=== PATIENT | female | born 1960 ===

== ENCOUNTER 2025-09-01 09:34 | Outpatient (AMB) | payer OTHER, SELFPAY ==
--- OUTSIDE RECORDS SUMMARY | 2024-07-29 06:45 | XMS_ITS ---
Author Organization [facility] Address [address] [place] [address] Care Team Providers Care Supervisor Picking Crew Name Role Phone [facility] Primary C are Provider Unavailable ELIZABETH BARAHONA Unavailable [phone] LYNETTE ARELLANO Unavailable [phone] REASON FOR VISIT pt is here for sema 0.25mg...pt signed consent and left the office in stable condition Medications Medication SIG (Take, Route, Frequency, Duration) Notes Start Date End Date Status Lipitor 40 MG Tablet 1 tablet Orally Once a day Active Omeprazole Magnesium 20 MG Tablet Delayed Release 1 tablet 30 minutes before morning meal Orally Once a day Active Eliquis 2.5 MG Tablet as directed Orally daily Active Diovan 160 MG Tablet 1 tablet Orally Once a day Active Wegovy 0.25 MG/0.5ML Solution Auto-injector 0.5 mL Subcutaneous once a week; Duration: 30 days 07/22/2024 Active Encounters Encounter Location Date Provider Diagnosis [facility] [address] [place] [address] 07/29/2024 LYNETTE ARELLANO Plan Of Treatment No Information Medications Administered Medication Instructions Date of Administration Dosage Notes Semaglutide 07/29/2024 0.25 mg Progress Notes * La YENsDOB: [birth year] (65 yo F)Acc No.[id number]:07/29/2024 Patient: Shani Webblis Provider: Dionicio Arellano MD :1960 A ge:63 Y S ex:Female Date:07/29/2024 [address] [facility] Pcp:[facility] Yasmin Subjective: * Chief Complaints: * P t is here for sema 0.25mg...pt signed consent and left the office in stable condition * Medications: T akingEliquis 2.5 MG Tablet as directed Orally daily Lipitor 40 MG Tablet 1 tablet Orally Once a day Omeprazole Magnesium 20 MG Tablet Delayed Release 1 tablet 30 minutes before morning meal Orally Once a day Diovan 160 MG Tablet 1 tablet Orally Once a day Wegovy 0.25 MG/0.5ML Solution Auto-injector 0.5 mL Subcutaneous once a week Taking Eliquis 2.5 MG Tablet as directed Orally daily Taking Lipitor 40 MG Tablet 1 tablet Orally Once a day Taking Omeprazole Magnesium 20 MG Tablet Delayed Release 1 tablet 30 minutes before morning meal Orally Once a day Taking Diovan 160 MG Tablet 1 tablet Orally Once a day Taking Wegovy 0.25 MG/0.5ML Solution Auto-injector 0.5 mL Subcutaneous once a week Plan: * Therapeutic Injections: Semaglutide : 0.25 mg (Route: Subcutaneous) given by Gayle Guy on right arm subcutaneous * Electronic signature of NILA ARELLANO MD on 09/01/2025 at 11:03 AM EST Sign off status: Pending * Provider: Dionicio Arellano MD Date: 09/28/2023 Generated for Donna lindsay/Patrick/Carmen on: 11/02/2024 11:03 AM EST
--- OUTSIDE RECORDS SUMMARY | 2024-08-05 05:15 | XMS_ITS ---
Author Organization [facility] Address [address] [place] [address] Care Team Providers Care Streetcar Conductor Name Role Phone [facility] Primary C are Provider Unavailable ELIZABETH BARAHONA Unavailable [phone] LYNETTE ARELLANO Unavailable [phone] REASON FOR VISIT pt is here for sema 0.25mg...pt signed consent and left the office in stable condition Medications Medication SIG (Take, Route, Frequency, Duration) Notes Start Date End Date Status Eliquis 2.5 MG Tablet as directed Orally daily Active Omeprazole Magnesium 20 MG Tablet Delayed Release 1 tablet 30 minutes before morning meal Orally Once a day Active Lipitor 40 MG Tablet 1 tablet Orally Once a day Active Wegovy 0.25 MG/0.5ML Solution Auto-injector 0.5 mL Subcutaneous once a week; Duration: 30 days 07/22/2024 Active Diovan 160 MG Tablet 1 tablet Orally Once a day Active Encounters Encounter Location Date Provider Diagnosis [facility] [address] [place] [address] 08/05/2024 LYNETTE ARELLANO Plan Of Treatment No Information Medications Administered Medication Instructions Date of Administration Dosage Notes Semaglutide 08/05/2024 0.25 mg Progress Notes * La YENsDOB: [birth year] (65 yo F)Acc No.[id number]:08/05/2024 Patient: Shani Webblis Provider: Dionicio Arellano MD :1960 A ge:63 Y S ex:Female Date:08/05/2024 [address] [facility] Pcp:[facility] Yasmin Subjective: * Chief Complaints: * P [...] of NILA ARELLANO MD on 09/01/2025 at 11:04 AM EST Sign off status: Pending * Provider: Dionicio Arellano MD Date: 10/05/2023 Generated for Donna lindsay/Patrick/Carmen on: 11/02/2024 11:04 AM EST
--- OUTSIDE RECORDS SUMMARY | 2024-08-11 05:15 | XMS_ITS ---
Author Organization [facility] Address [address] [place] [address] Care Team Providers Care Cardiac Nurse Specialist Name Role Phone [facility] Primary C are Provider Unavailable ELIZABETH BARAHONA Unavailable [phone] LYNETTE ARELLANO Unavailable [phone] REASON FOR VISIT pt is here for sema 0.25mg...pt signed consent and left the office in stable condition Medications Medication SIG (Take, Route, Frequency, Duration) Notes Start Date End Date Status Omeprazole Magnesium 20 MG Tablet Delayed Release 1 tablet 30 minutes before morning meal Orally Once a day Active Lipitor 40 MG Tablet 1 tablet Orally Once a day Active Eliquis 2.5 MG Tablet as directed Orally daily Active Wegovy 0.25 MG/0.5ML Solution Auto-injector 0.5 mL Subcutaneous once a week; Duration: 30 days 07/22/2024 Active Diovan 160 MG Tablet 1 tablet Orally Once a day Active Encounters Encounter Location Date Provider Diagnosis [facility] [address] [place] [address] 08/11/2024 LYNETTE ARELLANO Plan Of Treatment No Information Medications Administered Medication Instructions Date of Administration Dosage Notes Semaglutide 08/11/2024 0.25 mg Progress Notes * La YENsDOB: [birth year] (65 yo F)Acc No.[id number]:08/11/2024 Patient: Shani Webblis Provider: Dionicio Arlelano MD :1960 A ge:63 Y S ex:Female Date:08/11/2024 [address] [facility] Pcp:[facility] Yasmin Subjective: * Chief Complaints: * P [...] given by Gayle Guy on right arm intramuscular * Electronic signature of NILA ARELLANO MD on 09/01/2025 at 11:05 AM EST Sign off status: Pending * Provider: Dionicio Arellano MD Date: 10/11/2023 Generated for Donna lindsay/Patrick/Carmen on: 11/02/2024 11:05 AM EST
--- OUTSIDE RECORDS SUMMARY | 2024-08-25 04:00 | XMS_ITS ---
Author Organization [facility] Address [address] [place] [address] Care Team Providers Care Bank Vault Attendant Name Role Phone [facility] Primary C are Provider Unavailable ELIZABETH BARAHONA Unavailable [phone] LYNETTE ARELLANO Unavailable [phone] REASON FOR VISIT Patient is here for sema 0.5mg. patient signed consent and left in stable condition Medications Medication SIG (Take, Route, Frequency, Duration) Notes Start Date End Date Status Lipitor 40 MG Tablet 1 tablet Orally Once a day Active Wegovy 0.25 MG/0.5ML Solution Auto-injector 0.5 mL Subcutaneous once a week; Duration: 30 days 07/22/2024 Active Omeprazole Magnesium 20 MG Tablet Delayed Release 1 tablet 30 minutes before morning meal Orally Once a day Active Diovan 160 MG Tablet 1 tablet Orally Once a day Active Encounters Encounter Location Date Provider Diagnosis [facility] [address] [place] [address] 08/25/2024 LYNETTE ARELLANO Plan Of Treatment No Information Medications Administered Medication Instructions Date of Administration Dosage Notes Semaglutide 08/25/2024 0.5 mg Progress Notes * La YENsDOB: [birth year] (65 yo F)Acc No.[id number]:08/25/2024 Patient: Mary steiner Victorina Provider: Dionicio Arellano MD :1960 A ge:64 Y S ex:Female Date:08/25/2024 [address] [facility] [facility] [place] Subjective: * Chief Complaints: * P atient is here for sema 0.5mg. patient signed consent and left in stable condition * Medications: T akingLipitor 40 MG Tablet 1 tablet Orally Once a day Omeprazole Magnesium 20 MG Tablet Delayed Release 1 tablet 30 minutes before morning meal Orally Once a day Diovan 160 MG Tablet 1 tablet Orally Once a day Wegovy 0.25 MG/0.5ML Solution Auto-injector 0.5 mL Subcutaneous once a week Taking Lipitor 40 MG Tablet 1 tablet Orally Once a day Taking Omeprazole Magnesium 20 MG Tablet Delayed Release 1 tablet 30 minutes before morning meal Orally Once a day Taking Diovan 160 MG Tablet 1 tablet Orally Once a day Taking Wegovy 0.25 MG/0.5ML Solution Auto-injector 0.5 mL Subcutaneous once a week Plan: * Therapeutic Injections: Semaglutide : 0.5 mg (Route: Subcutaneous) given by CESAR FULLER on subcutaneus * Electronic signature of NILA ARELLANO MD on 09/01/2025 at 11:05 AM EST Sign off status: Pending * Provider: Dionicio Arellano MD Date: 10/26/2023 Generated for Donna lindsay/Patrick/Carmen on: 11/02/2024 11:05 AM EST
--- OUTSIDE RECORDS SUMMARY | 2024-08-31 04:00 | XMS_ITS ---
Author Organization [facility] Address [address] [place] [address] Care Team Providers Care Supervisor Assembly Name Role Phone [facility] Primary C are Provider Unavailable ELIZABETH BARAHONA Unavailable [phone] LYNETTE ARELLANO Unavailable [phone] REASON FOR VISIT Patient is here for sema 0.5mg. Patient signed consent and left the office in [...] a week; Duration: 30 days 07/22/2024 Active Lipitor 40 MG Tablet 1 tablet Orally Once a day Active Encounters Encounter Location Date Provider Diagnosis [facility] [address] [place] [address] 08/31/2024 LYNETTE ARELLANO Plan Of Treatment No Information Medications Administered Medication Instructions Date of Administration Dosage Notes Semaglutide 08/31/2024 0.5 mg Progress Notes * La YENsDOB: [birth year] (65 yo F)Acc No.[id number]:08/31/2024 Patient: Mary steiner Victorina Provider: Dionicio Arellano MD :1960 A ge:64 Y S ex:Female Date:08/31/2024 [address] [facility] Pcp:[facility] Subjective: * Chief Complaints: * P bhavana is here for sema 0.5mg. Patient signed consent and left the office in stable condition * Medications: T akingLipitor [...] : 0.5 mg (Route: Subcutaneous) given by Gayle Guy on subcutaneus * Electronic signature of NILA ARELLANO MD on 09/01/2025 at 11:04 AM EST Sign off status: Pending * Provider: Dionicio Arellano MD Date: 11/01/2023 Generated for Donna lindsay/Patrick/Carmen on: 11/02/2024 11:04 AM EST
--- OUTSIDE RECORDS SUMMARY | 2024-09-11 05:15 | XMS_ITS ---
Author Organization [facility] Address [address] [place] [address] Care Team Providers Care Compress Machine Operator Name Role Phone [facility] Primary C are Provider Unavailable ELIZABETH BARAHONA Unavailable [phone] LYNETTE ARELLANO Unavailable [phone] REASON FOR VISIT Patient is here for sema 0.5mg. Patient signed consent and left the office in stable condition Medications Medication SIG (Take, Route, Frequency, Duration) Notes Start Date End Date Status Diovan 160 MG Tablet 1 tablet Orally Once a day Active Wegovy 0.25 MG/0.5ML Solution Auto-injector 0.5 mL Subcutaneous once a week; Duration: 30 days 07/22/2024 Active Lipitor 40 MG Tablet 1 tablet Orally Once a day Active Omeprazole Magnesium 20 MG Tablet Delayed Release 1 tablet 30 minutes before morning meal Orally Once a day Active Encounters Encounter Location Date Provider Diagnosis [facility] [address] [place] [address] 09/11/2024 LYNETTE ARELLANO Plan Of Treatment No Information Medications Administered Medication Instructions Date of Administration Dosage Notes Semaglutide 09/11/2024 0.5 mg Progress Notes * La YENsDOB: [birth year] (65 yo F)Acc No.[id number]:09/11/2024 Patient: Mary steiner Victorina Provider: Dionicio Arellano MD :1960 A ge:64 Y S ex:Female Date:09/11/2024 [address] [facility] Pcp:[facility] Subjective: * Chief Complaints: * P bhavana [...] of NILA ARELLANO MD on 09/01/2025 at 11:06 AM EST Sign off status: Pending * Provider: Dionicio Arellano MD Date: 11/12/2023 Generated for Donna lindsay/Patrick/Carmen on: 11/02/2024 11:06 AM EST
--- OUTSIDE RECORDS SUMMARY | 2024-09-17 04:00 | XMS_ITS ---
Author Organization [facility] Address [address] [place] [address] Care Team Providers Care Clin Nurse Spec Name Role Phone [facility] Primary C are Provider Unavailable ELIZABETH BARAHONA Unavailable [phone] LYNETTE ARELLANO Unavailable [phone] REASON FOR VISIT Patient is here for sema 0.5mg. Patient signed consent and left the office in stable condition Medications Medication SIG (Take, Route, Frequency, Duration) Notes Start Date End Date Status Wegovy 0.25 MG/0.5ML Solution Auto-injector 0.5 mL Subcutaneous once a week; Duration: 30 days 07/22/2024 Active Diovan 160 MG Tablet 1 tablet Orally Once a day Active Omeprazole Magnesium 20 MG Tablet Delayed Release 1 tablet 30 minutes before morning meal Orally Once a day Active Lipitor 40 MG Tablet 1 tablet Orally Once a day Active Encounters Encounter Location Date Provider Diagnosis [facility] [address] [place] [address] 09/17/2024 LYNETTE ARELLANO Plan Of Treatment No Information Medications Administered Medication Instructions Date of Administration Dosage Notes Semaglutide 09/17/2024 0.5 mg Progress Notes * La YENsDOB: [birth year] (65 yo F)Acc No.[id number]:09/17/2024 Patient: Mary steiner Victorina Provider: Dionicio Arellano MD :1960 A ge:64 Y S ex:Female Date:09/17/2024 [address] [facility] [facility]cp:[facility] Subjective: * Chief Complaints: * P bhavana [...] Pending * Provider: Dionicio Arellano MD Date: 0 09/17/2024 Generated for Donna lindsay/Patrick/Carmen on: 11/02/2024 11:04 AM EST
--- OUTSIDE RECORDS SUMMARY | 2024-09-23 04:00 | XMS_ITS ---
Author Organization [facility] Address [address] [place] [address] Care Team Providers Care Straight Line Press Setter Name Role Phone [facility] Primary C are Provider Unavailable ELIZABETH BARAHONA Unavailable [phone] LYNETTE ARELLANO Unavailable [phone] REASON FOR VISIT Patient is here for [...] Active Encounters Encounter Location Date Provider Diagnosis [facility] [address] [place] [address] 09/23/2024 LYNETTE ARELLANO Plan Of Treatment No Information Medications Administered Medication Instructions Date of Administration Dosage Notes Semaglutide 09/23/2024 0.5 mg Progress Notes * La YENsDOB: [birth year] (65 yo F)Acc No.[id number]:09/23/2024 Patient: Mary steiner Victorina Provider: Dionicio Arellano MD :1960 A ge:64 Y S ex:Female Date:09/23/2024 [address] [facility] [facility] Subjective: * Chief Complaints: * [...] * Provider: Dionicio Arellano MD Date: 0 09/23/2024 Generated for Donna lindsay/Patrick/Carmen on: 11/02/2024 11:06 AM EST
--- OUTSIDE RECORDS SUMMARY | 2025-08-31 09:00 | XMS_ITS | Encounter Summary ---
Author Organization [facility] Address [address] [place] [address] Care Team Providers Care Clinical Education Coordinator Name Role Phone Delia Ramírez MD Primary Care Provider [phone] Reason for Referral * Consultation (Routine) - Pending Review Specialty Diagnoses / Procedures Referred By Rona meyers Referred To Contact Psychiatry Diagnoses Grief Anxiety and depression Michelle Manriquez NP [address] [place] [phone] Phone: tel: fax: [facility] [address] [place] [phone] Phone: tel: fax: Referral ID Status Reason Start Date Expiration Date Visits Requested Visits Authorized [id number] Pending Review Specialty Services Required 08/31/2026 1 1 Reason for Visit * Reason Comments Back Pain Encounter Details Date Type Department Care Team (Late st Contact Info) Description 08/31/2025 9:00 AM EST Office Visit Internal Medicine - [address] [phone] Michelle Manriquez NP [address] [place] [phone] Body aches (Primary Dx); Anxiety and depression; Insomnia, unspecified type; Mild intermittent asthma without complication; Gastroesophageal reflux disease, unspecified whether esophagitis present; Primary hypertension; Mixed hyperlipidemia; Palpitations; Grief Social History Tobacco Use Types Packs/Day Years Used Date Smoking Tobacco: Never Smokeless Tobacco: Never Alcohol Use Standard Drinks/Week Comments No 0 (1 standard drink = 0.6 oz pur e alcohol) Housing Instability Answer Date Recorde d Are you worried that in the next 2 months you may not have stable housing? No 07/15/2025 Food Access & Nutrition Answer Date Rec orded Do you have access to a vari ety of food including fruits and vegetables? No 07/15/2025 Health Literacy Answer Date Recorded How often do you need to hav e someone help you when you read instructions, pamphlets, or other written material from your doctor or pharmacy? Never 07/15/2025 Caregiver: How often do you need to have someone help you when you read instructions, pamphlets, or other written material from your doctor or pharmacy? Not on file 07/15/2025 Financial Risk Answer Date Recorded How hard is it for you to pa y for the very basics like food, housing, medical care, and air conditioning / heating? Not very hard 07/15/2025 Transportation Answer Date Recorded Has the lack of transportati on kept you from meetings, work, or from getting things needed for daily living? No Has the lack of transportati on kept you from medical appointments or from getting medications? No 07/15/2025 Social Isolation Answer Date Recorded How often do you feel lonely or isolated from th ose around you? Never 07/15/2025 Food Risk Answer Date Recorded Within the past 12 months we worried whether our food would run out before we got money to buy more. Never true 07/15/2025 Within the past 12 months th e food we bought just didn't last and we didn't have money to get more. Never true 07/15/2025 Dependent Care Answer Date Recorded Do you need help finding or paying for care for your loved ones. For example, teacher early childhood development or elderly care for an older adult? No 07/15/2025 Education Answer Date Recorded Do you think completing more education or training, like finishing a GED, going to college, or learning a trade, would be helpful for you? No 07/15/2025 Employment and Income Answer Date Recor ded During the last four weeks, have you been actively looking for work? No 07/15/2025 Living Situation Answer Date Recorded What is your living situation? Unrecognized valu e 07/15/2025 Comments No Sex and Gender Information Value Date Recorded Sex Assigned at Not on file Legal Sex Female 11:20 PM EDT Gender Identity Not on file Sexual Orientation Not on file documented as of this encounter Last Filed Vital Signs Vital Sign Reading Time Taken Comments Blood Pressure 144/82 08/31/2025 9:29 AM EST Pulse 82 08/31/2025 9:01 AM EST auto cuff Temperature 36.5 C (97.7 F) 08/31/2025 9:01 AM EST Respiratory Rate - - Oxygen Saturation - - Inhaled Oxygen Concentration - - Weight 68.6 kg (151 lb 3.2 oz) 08/31/2025 9:01 A M EST Height - - Body Mass Index 26.78 07/27/2025 1:02 PM EST documented in this encounter Ordered Prescriptions Prescription Sig Dispense Quantity Refills Last Filled Start Date End Date hydroCHLOROthiazid e 12.5 mg tablet Take 1 tablet (12.5 mg total) by mouth 1 (one) time each day. 90 each 1 08/31/2025 6 omeprazole (PriLOSEC) [address] capsuleIndications :Gastroesophageal reflux disease, unspecified whether esophagitis present Take 1 capsule (40 mg total) by mouth 2 (two) times a day. Do not crush or chew. 180 each 1 08/31/2025 6 cyclobenzaprine (FLEXERIL) 10 mg tablet Take 0.5 tablets (5 mg total) by mouth 2 (two) times a day if needed for muscle spasms. 60 tablet 1 08/31/2025 6 hydroCHLOROthiazid e 12.5 mg tablet Take 1 tablet (12.5 mg total) by mouth 1 (one) time each day. 90 each 1 08/31/2025 5 documented in this encounter Progress Notes * Michelle Walls NP - 08/31/2025 9:00 AM EST I have obtained verbal consent from Victorina Torres prior to the recording. I have advised Victorina Torres that she may refuse the recording and require the recording to be turned off at any time during this encounter. CHIEF COMPLAINT: Back Pain IDENTIFIER: Victorina Torres is a 65 y.o. old female. History of Present Illness The patient is a 65-year-old female who presents for a 6-week follow-up. She has been experiencing persistent musculoskeletal pain, which she attributes to her previous surgeries. An x-ray revealed spinal arthritis. She has recently initiated physical therapy and is scheduled to consult with a pain specialist tomorrow. She has added magnesium to her regimen due to the pain. Her anxiety has not improved and may be worsening due to recent losses and the inability to see hermother during the holiday season. She had declined psychiatric referral and is currently receiving support from hospice older adult social work specialist due to the loss of her mom. She continues to take sertraline, which she finds beneficial, but still struggles with sleep disturbances. She has been supplementing with melatonin. She has been experiencing heartburn at night. She is currently on omeprazole for this condition. She has not yet followed up with genetics. She has scheduled a mammogram and bone density test for 10/10/2025. She has added vitamin B12 to her regimen. She was started on Symbicort during her last visit for her breathing issues, which is working well. Her blood pressure was stable during her last visit, but today it is elevated at 163/95 pulse of 82. She will have it rechecked before leaving. No anginal symptoms reported. No chest pain or heart palpitations, dizziness or lightheadedness, fatigue or shortness of breath. Sleep: She reports not sleeping well and has been trying melatonin. PAST SURGICAL HISTORY: - Two C-sections - Sleeve gastrectomy - Cholecystectomy - Colon resection - Two attempts at scar tissue removal from the abdomen Victorina Torres has been told that her surgeries could have an impact on the pain she is experiencing at this time. ROS: Constitutional: no weakness fever/ sweats, or weight change HEENT: no acute vision changes, ear pain, sore throat, nasal discharge. Respiratory: no shortness of breath, cough or wheezing Cardiovascular:no chest pain or palpitations, no orthopnea or edema GI: no nausea, vomiting or diarrhea; no rectal bleeding or dark stools MSK: Generalized pain, no swelling or impaired ROM Neuro: no acute headaches, dizziness, weakness. Psych: Grieving. PAST MEDICAL HISTORY: Patient Active Problem List Diagnosis Date Noted Chronic gastritis 02/12/2023 Palpitations 02/12/2023 Syncope and collapse 02/12/2023 Anxiety and depression 07/03/2021 Acid reflux 05/01/2009 Allergic rhinitis 09/01/2006 Asthma 09/01/2006 HTN (hypertension) 09/01/2006 Hyperlipidemia 09/01/2006 ACTIVE MEDICATIONS: Medications Taking[1] ALLERGIES: Allergies[2] Physical Exam Visit Vitals BP (!) 144/82 Pulse 82 Comment: auto cuff Temp 36.5 ??C (97.7 ??F) (Oral) Wt 68.6 kg (151 lb 3.2 oz) BMI 26.78 kg/m?? OB Status Postmenopausal Smoking Status Never BSA 1.72 m?? General: the patient is awake, alert, cooperative and in no acute distress. Lungs: clear to auscultation without increased respiratory rate or effort. Heart: RRR. S1 and S2 heard, no MRG NEURO: AAOx3, ambulatory with a steady gait and without use of an assistive device. IMPRESSION: 1. Body aches 2. Anxiety and depression 3. Gastroesophageal reflux disease, unspecified whether esophagitis present 4. Primary hypertension 5. Mixed hyperlipidemia 6. Mild intermittent asthma without complication 7. Palpitations 8. Grief Assessment & Plan 1. Muscular skeletal, generalized body aches: - She reports ongoing pain and has been referred to physical therapy, which she has just started. - A consultation with a pain specialist is scheduled for tomorrow. - A prescription for Flexeril 5 mg, to be taken twice daily, has been provided with a total of 60 tablets. She is advised to use Tylenol as needed in between doses of Flexeril. The potential renal impact of Flexeril was discussed, and she is advised to use it sparingly. 2. Anxiety and depression: - Her symptoms have worsened due to recent losses which have happened in a series of every 4 monthsfrom each other and has exacerbated during the holiday season. Patient reports her aunt is on hospice currently as well. - A referral to a psychiatrist has been made for further evaluation and management. Patient agrees to referral on this visit. - She continues to take sertraline, which helps but does not fully alleviate her symptoms. 3. Insomnia: - She reports difficulty sleeping despite taking melatonin. - Patient advised to have issue addressed during her psychiatric evaluation to ensure proper evaluation and no masking of symptoms.. 4. Heartburn: - She reports experiencing heartburn at night. - The dosage of omeprazole has been increased to 40 mg twice daily. If there is no improvement, a referral to a aluminum fabrication supervisor will be considered. 5. Asthma: Stable. - Symbicort is effectively managing her asthma symptoms. 6. Hypertension: - Her blood pressure is elevated today at 163/95. - Blood pressure recheck 144/82 with a pulse of 82. Patient is currently on Diovan 160 mg 2 times aday and hydrochlorothiazide 12.5 mg 1 tablet daily has been added to her regimen. Patient to come back in 4 weeks for blood pressure recheck and to have blood work prior to next visit. 7. Hyperlipidemia: - Her cholesterol levels were previously high. A fasting lipid panel will be ordered to be completed prior to next visit. 8. Palpitations. Stable. Patient denies this symptom. 9. Grief. Patient is grieving and has undergone anxiety and depression and is currently on sertraline but pressures referral to psychiatry has been put in for further evaluation due to her continued family losses that have been happening every 4 months with a current and on hospice as well. 10. Health maintenance: - She has scheduled a mammogram and bone density test for 10/10/2025. A comprehensive lab workup will be conducted prior to next visit to assess liver function, kidney function, electrolytes, hemoglobin A1c, thyroid function, vitamin B12 levels, and folate levels. - She is advised to bring all her supplements to the next visit for review. Follow-up: 4 weeks for blood pressure recheck and patient to complete blood work prior to visit. Medication and lab orders: Orders Placed This Encounter Procedures Lipid panel with reflex to direct LDL Comprehensive metabolic panel Vitamin B12 Folate Magnesium Basic metabolic panel Microalbumin creatinine urine ratio Ambulatory referral to [facility] Other orders: AMB REFERRAL TO [facility] Michelle Walls NP on 08/31/2025 at 12:37 PM EST I have maintained a long-term, longitudinal relationship with this patient, overseeing care of chronic conditions. This care relationship has significantly influenced my decision making and treatmentplans during today's encounter. Discussed red flags that would warrant further evaluation. Plan of care reviewed with patient and patient verbalized understanding and is in agreement with plan. Today's documentation was made using voice recognition software.This note may contain grammatical errors secondary to this software. [1] Outpatient Medications Marked as Taking for the 08/31/25 encounter (Office Visit) with Michelle Walls NP Medication Sig Dispense Refill acetaminophen (TYLENOL) 325 mg capsule Take by mouth. albuterol HFA (PROAIR HFA ; PROVENTIL HFA ; VENTOLIN HFA) 90 mcg/actuation inhaler Inhale 2 Puffs into the lungs every 4 hours as needed for Cough or Wheezing. 6.7 g 0 atorvastatin (LIPITOR) 20 mg tablet Take 1 tablet (20 mg total) by mouth 1 (one) time each day. 90 each 1 budesonide-formoteroL (SYMBICORT) 80-4.5 mcg/actuation inhaler Inhale 2 puffs by mouth 2 (two) times a day. Rinse mouth with water after use to reduce aftertaste and incidence of candidiasis. Do not swallow. 1 each 3 cyclobenzaprine (FLEXERIL) 10 mg tablet Take 0.5 tablets (5 mg total) by mouth 2 (two) times a day if needed for muscle spasms. 60 tablet 1 fluticasone propionate (FLONASE) 50 mcg/actuation nasal spray Administer 2 sprays into each nostril1 (one) time each day. Shake gently. Before first use, prime pump. After use, clean tip and replacecap. 16 g 3 hydroCHLOROthiazide 12.5 mg tablet Take 1 tablet (12.5 mg total) by mouth 1 (one) time each day. 90each 1 hydrocortisone 1 % topical cream Apply 0.5 FTU twice daily for up to two weeks. MULTIVITAMIN ORAL 1 tab daily omega-3 (FISH OIL) 300-1,000 mg capsule Take 1 capsule (1,000 mg total) by mouth 1 (one) time each day. omeprazole (PriLOSEC) [address] capsule Take 1 capsule (40 mg total) by mouth 2 (two) times a day. Do not crush or chew. 180 each 1 ondansetron (ZOFRAN) 4 mg tablet Take 1 tablet (4 mg total) by mouth every 8 (eight) hours if needed for nausea. sertraline (ZOLOFT) 25 mg tablet Take 2 tablets (50 mg total) by mouth 1 (one) time each day. Takes25 mg daily x 1 week then increase to 50 mg daily afterwards 60 each 3 valsartan (DIOVAN) 160 mg tablet Take 1 tablet (160 mg total) by mouth 2 (two) times a day. 180 tablet 1 [DISCONTINUED] cyclobenzaprine (FLEXERIL) 10 mg tablet Take 1 tablet (10 mg total) by mouth 2 (two)times a day if needed for muscle spasms. 10 tablet 0 [DISCONTINUED] omeprazole (PriLOSEC) [address] capsule Take 1 capsule (40 mg total) by mouth 1 (one)time each day. Do not crush or chew. 90 each 1 [2] Allergies Allergen Reactions Cephalexin Diarrhea and Nausea And Vomiting Ciprofloxacin Diarrhea and Nausea And Vomiting Shellfish Containing Products documented in this encounter Plan of Treatment Upcoming Encounters Date Type Department Care Team (Late st Contact Info) Description 09/02/2025 2:30 PM EST Treatment [address] [phone] Dhiraj Hdz, SETUP OPERATOR 09/07/2025 9:00 AM EST Treatment [address] [phone] Clark Joshua, SETUP OPERATOR 09/14/2025 9:00 AM EST Treatment [address] [phone] Dhiraj Hdz, SETUP OPERATOR 09/16/2025 9:30 AM EST Treatment [address] [phone] Clark Joshua, SETUP OPERATOR 09/21/2025 9:00 AM EST Treatment [address] [phone] Clark Joshua, SETUP OPERATOR 09/23/2025 9:00 AM EST Treatment [address] [phone] Jose Jaime, PT 09/27/2025 10:[address] [facility] [address] [place] [phone] 09/27/2025 10:45 AM EST Appointment [facility] [address] [place] [address] 09/28/2025 9:00 AM EST Treatment [facility] [address] [phone] VeenaClark bahena, SETUP OPERATOR 09/30/2025 9:00 AM EST Treatment [facility] [address] [phone] Jose Jaime, PT 10/07/2025 9:15 AM EST Office Visit Internal Medicine - [facility] [address] [place] [address] Michelle Manriquez, ROLL RECLAIMER [address] [place] [address] 10/18/2025 9:15 AM EST Office Visit Bariatric Surgery [facility] 175 [facility] [address] [place] [phone] Rosanne Hunter MD [address] [place] [phone] Scheduled Orders Name Type Priority Associated Diagnoses Orde r Schedule Lipid panel with reflex to direct LDL Lab Routine Mixed hyperlipidemia 1 Occurrences starting 08/31/2025 until 08/31/2026 Comprehensive metabolic panel Lab Routine Primary hypertension Mixed hyperlipidemia 1 Occurrences starting 08/31/2025 until 08/31/2026 Vitamin B12 Lab Routine Primary hypertension 1 Occurrences starting 08/31/2025 until 08/31/2026 Folate Lab Routine Gastroesophageal reflux disease, unspecified whether esophagitis present Primary hypertension Mixed hyperlipidemia Mild intermittent asthma without complication Palpitations Grief Anxiety and depression Body aches 1 Occurrences starting 08/31/2025 until 03/01/2026 Magnesium Lab Routine Palpitations Body aches 1 Occurrences starting 08/31/2025 until 08/31/2026 Basic metabolic panel Lab Routine Primary hypertension 1 Occurrences starting 08/31/2025 until 08/31/2026 Microalbumin creatinine urine ratio Lab Routine Primary hypertension Mixed hyperlipidemia Expected: 09/26/2025, Expires: 08/31/2026 Scheduled Referrals Name Type Priority Associated Diagnoses Order Schedule Ambulatory referral to [facility] Outpatient Referral Routine Grief Anxiety and depression 1 Occurrences starting 08/31/2025 until 08/31/2026 documented as of this encounter Visit Diagnoses Diagnosis Body aches- Primary Generalized pain Anxiety and depression Insomnia, unspecified type Mild intermittent asthma without complication Gastroesophageal reflux disease, unspecified whether esophagitis present Primary hypertension Unspecified essential hypertension Mixed hyperlipidemia Palpitations Grief Adjustment disorder with depressed mood documented in this encounter Discontinued Medications Medication Sig Discontinue Reason Start Date End Da te omega-3 acid ethyl esters (LOVAZA) 1 gram capsule Take by mouth. Duplicate order 08/31/2025 omeprazole (PriLOSEC) [address] capsuleIndications:Gastr oesophageal reflux disease, unspecified whether esophagitis present Take 1 capsule (40 mg total) by mouth 1 (one) time each day. Do not crush or chew. Reorder 06/07/2025 08/31/2025 cyclobenzaprine (FLEXERIL) 10 mg tablet Take 1 tablet (10 mg total) by mouth 2 (two) times a day if needed for muscle spasms. Reorder 07/25/2025 08/31/2025 hydroCHLOROthiazide 12.5 mg tablet Take 1 tablet (12.5 mg total) by mouth 1 (one) time each day. 08/31/2025 08/31/2025 documented as of this encounter Additional Health Concerns Infection Onset Date Last Indicated Resolved Time COVID-19 08/08/2025 08/08/2025 Assessment Noted Time PHQ-9 Depression Total Score: 9 07/15/20 25 10:40 AM EDT documented as of this encounter Care Teams Clinical Education Coordinator Relationship Specialty Start Date End Date Delia Ramírez MD [address] [place] [phone] PCP - General Internal Medicine 05/05/25 documented as of this encounter
--- NOTE | 2025-09-01 09:35 | A.PHYSOV ---
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 Patient has been referred for low back pain. Allergies cephalexin Allergy (Unknown, Verified 09/01/25 09:28) Unknown ciprofloxacin Allergy (Unknown, Verified 09/01/25 09:28) Unknown shellfish derived (shellfish) Allergy (Unknown, Verified 09/01/25 09:28) Unknown HPI Comments Details: History of Present Illness The patient is a 65 year old female presenting with severe low back pain. The pain began in May after sleeping in a recliner for approximately a week and a half. She describes the pain as originating in her back and radiating down to her legs, which prompted visits to the ER due to concern for blood clots. An x-ray revealed arthritis and degenerative disc disease. The patient's past surgical history is notable for eight abdominal surgeries. The patient has tried Tylenol, which was not helpful, and Motrin. She reports some relief with Flexeril. She recently started physical therapy and has completed one session. I reviewed the referring provider's no prior to consultation. Pain Description - Onset: The pain started in May after sleeping in a recliner for an extended period. - Location: Low back. - Radiation: Pain radiates down to her legs, specifically the back of her thighs. - Severity: The patient rates her current pain as a 6 out of 10. - Exacerbating Factors: Pain is worsened by walking, sitting for a period of time, standing in one place, and lying in bed. - Relieving Factors: She has to frequently change positions in bed for comfort. Results - Imaging: An X-ray of the back revealed arthritis and degenerative disc disease. FORMERLY [facility], [facility] Social History (Updated 09/01/25 @ 09:40 by Holly Simms MA) Alcohol intake: current Alcohol intake frequency: does not drink Patient Tobacco Use Status: Never used Tobacco Review of Systems Narrative Review of Systems - Musculoskeletal: Reports severe low back pain. - Neurological: Reports pain radiating from her back down to her legs. - Neurological: Denies sensory changes, reporting sensation to be the same on both legs. Physical Exam Exam Exam: Physical Exam - Back: Tenderness to palpation over the lower back. - Back: Lumbar extension provokes some back pain and radicular symptoms. - Back: Lumbar flexion provokes more back pain than leg pain. - Neurological: Sensation to light touch is perceived equally in both lower extremities. - Neurological: Straight leg raise is positive on the left, eliciting pain, tension, or tightness. - Neurological: Straight leg raise on the right does not cause significant pain. - Neurological: Deep tendon reflexes were tested. - Neurological: Motor strength was grossly tested via foot and thigh movements. Vital Signs: BMI result Body Mass Index 26.2 Assessment & Plan Assessment & Plan (1) Lumbar radiculopathy: Code(s): M54.16 - Radiculopathy, lumbar region Category: Medical (2) Lumbar spondylosis: Code(s): M47.816 - Spondylosis without myelopathy or radiculopathy, lumbar region Category: Medical Plan Pain Management - Analgesia: The patient's current pain level is a 6/10. - Analgesia: She has been taking Tylenol (ineffective), Motrin, and Flexeril (provided some help). - Activities of Daily Living: Pain interferes with walking, sitting, standing, and sleeping. - Analgesia: She will begin a trial of gabapentin for neuropathic pain. Plan Patient was informed and verbally consented to the use of an ambient scribe for clinic note documentation during this visit. 1. Low Back Pain With Left-Sided Sciatica The patient's symptoms are suggestive of nerve root irritation given the radicular pattern and exam findings. An MRI of the lumbar spine would provide a definitive view of the discs and nerves, but insurance requires a trial of conservative therapy first. The plan is to continue with physical therapy for 4-6 weeks. For management of her neuropathic pain, she will start gabapentin. She was instructed to begin with 100 mg at night to assess for somnolence, with the option to titrate up to three times a day as tolerated and needed for symptom control. If she does not improve after completing the course of physical therapy, an MRI of the lumbar spine will be ordered at her follow-up visit in five weeks. Discussion Notes I discussed with the patient that her symptoms of back pain radiating to her legs are likely due to a nerve issue, which is not visible on an X-ray. I explained that while an MRI is the best test to visualize the nerves and discs, most insurance companies require a course of conservative management, such as physical therapy, before approving the imaging. We agreed that she would continue with physical therapy for another four to five weeks. I recommended starting gabapentin for her nerve pain. I explained the potential side effect of sleepiness and instructed her to start with a low dose at night, with the ability to increase the dose and frequency as needed and tolerated. I also clarified that while the prescription will state to take it three times a day for pharmacy dispensing purposes, she has the flexibility to adjust her dose based on her symptoms and side effects. We will plan for a follow-up appointment in five weeks. I informed her that if her symptoms do not improve with physical therapy by that time, I will order an MRI of her lumbar spine. Patient Instructions - Please continue with your physical therapy for the next 4-6 weeks. - Begin taking gabapentin for nerve pain. Start with one 100 mg pill at nighttime to see how it affects you. - If the medication helps and does not make you too sleepy, you can increase the dose. You may take it up to three times a day as needed for pain. - You can continue to use Tylenol or Motrin as needed for pain. - Please schedule a follow-up appointment in five weeks to check on your progress. - If your pain is not better by the next visit, we will order an MRI of your back. Medications: New gabapentin 100 mg PO TID 90 caps 0RF 30 days M47.816 - Spondylosis without myelopathy or radiculopathy, lumbar region, M54.16 - Radiculopathy, lumbar region Coding Level of Care Code [facility] New Pt Level 4 (59909) Diagnoses Lumbar radiculopathy M54.16 Lumbar spondylosis M47.816
[2025-09-01 09:38] VITALS: BMI 26.2
--- OUTSIDE RECORDS SUMMARY | 2025-09-01 11:04 | XMS_ITS | Encounter Summary ---
Author Organization [facility] Address [address] [place] [address] Care Team Providers Care Histology Technologist Name Role Phone Delia Ramírez MD Primary Care Provider Encounter Details Date Type Department Care Team (Late st Contact Info) Description 07/27/2025 Results Follow-Up Internal Medicine - [facility] [address] [place] [address] Sukh Daniels, DANIEL [address] [place] [address] Social History Tobacco Use Types Packs/Day Years [...] care for your loved ones. 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 [...] on file documented as of this encounter Ordered Prescriptions Prescription Sig Dispense Quantity Refills Last Filled Start Date End Date predniSONE (DELTASONE) 20 mg tablet Take 3 tabs (60mg) daily for 5 days, then take 2 tabs (40mg) daily for 2 days, then take 1 tab (20mg) daily for 2 days. 21 tablet 07/28/2025 08/06/2025 documented in this encounter Plan of Treatment Upcoming Encounters Date Type Department Care Team (Late st Contact Info) Description 09/02/2025 2:30 PM EST Treatment [facility] [address] [phone] Dhiraj Hdz, MILL OILER 09/07/2025 9:00 AM EST Treatment [facility] [address] [phone] Clark Joshua, MILL OILER 09/14/2025 9:00 AM EST Treatment [facility] [address] [phone] Dhiraj Hdz, MILL OILER 09/16/2025 9:30 AM EST Treatment [facility] [address] [phone] Clark Joshua, MILL OILER 09/21/2025 9:00 AM EST Treatment [facility] [address] [address] Clark Joshua, MILL OILER 09/23/2025 9:00 AM EST Treatment [facility] [address] [phone] Jose Jaime, PT 09/27/2025 10:[address] [facility] [address] [place] [address] 09/27/2025 10:45 AM EST Appointment [facility] [address] [place] [address] 09/28/2025 9:00 AM EST Treatment [facility] [address] [phone] Clark Joshua, MILL OILER 09/30/2025 9:00 AM EST Treatment [address] [phone] Jose Jaime, PT 10/07/2025 9:15 AM EST Office Visit Internal Medicine - [facility] [address] [place] [address] Michelle Manriquez, PRODUCT BUILDER [address] [place] [address] 10/18/2025 9:15 AM EST Office Visit Bariatric Surgery - [place] [address] [place] [phone] Rosanne Hunter MD [address] [place] [phone] documented as of this encounter Visit Diagnoses Not on filedocumented in this encounter Additional Health Concerns Infection Onset Date Last Indicated Resolved Time COVID-19 08/08/2025 08/08/2025 Assessment Noted Time PHQ-9 Depression Total Score: 9 07/15/20 25 10:40 AM EDT documented as of this encounter Care Teams Histology Technologist Relationship Specialty Start Date End Date Delia Ramírez MD [address] [place] [address] PCP - General Internal Medicine 05/05/25 documented as of this encounter
--- OUTSIDE RECORDS SUMMARY | 2025-09-01 11:04 | XMS_ITS | Encounter Summary ---
Author Organization [facility] Address [address] [place] [address] Care Team Providers Care Environmental Studies Faculty Member Name Role Phone Delia Ramírez MD Primary Care Provider [phone] Reason for Referral * Consultation (Urgent) - Closed Specialty Diagnoses / Procedures Referred By Contact Referred To Contact Physical Medicine and Rehabilitation Diagnoses Chronic midline low back pain, unspecified whether sciatica present Sukh Daniels NP [address] [place] [address] Phone: tel: fax: [facility] [address] [address] Phone: tel: fax:[phone] Referral ID Status Reason Start Date Expiration Date V isits Requested Visits Authorized [id number] Closed Specialty Services Required 08/22/2025 08/22/2026 1 1 Encounter Details Date Type Department Care Team (Late st Contact Info) Description 08/22/2025 Telephone Internal Medicine - [facility] [address] [place], [place] [phone] Delia Ramírez MD [address] [place] [address] Social History Tobacco Use Types Packs/Day Years [...] care for your loved ones. For example, early childhood education specialist or elderly care for an older adult? [...] on file documented as of this encounter Progress Notes * Amrita Handy MA - 08/22/2025 1:23 PM EST Pt notified documented in this encounter Plan of Treatment Upcoming Encounters Date Type Department Care Team (Late st Contact Info) Description 09/02/2025 2:30 PM EST Treatment [address] [address] Dhiraj Hdz, CLINICAL MICROBIOLOGIST 09/07/2025 9:00 AM EST Treatment [address] [phone] Clark Joshua, CLINICAL MICROBIOLOGIST 09/14/2025 9:00 AM EST Treatment [address] [address] Dhiraj Hdz, CLINICAL MICROBIOLOGIST 09/16/2025 9:30 AM EST Treatment [address] [address] Clark Joshua, CLINICAL MICROBIOLOGIST 09/21/2025 9:00 AM EST Treatment [address] [phone] Clark Joshua, CLINICAL MICROBIOLOGIST 09/23/2025 9:00 AM EST Treatment [address] [phone] Jose Jaime, PT 09/27/2025 10:00 AM EST Appointment [facility] [address] [place] [address] 09/27/2025 10:45 AM EST Appointment [facility] [address] [place] [address] 09/28/2025 9:00 AM EST Treatment [facility] [address] [address] Clark Joshua, CLINICAL MICROBIOLOGIST 09/30/2025 9:00 AM EST Treatment [facility] [address] [phone] Jose Jaime, PT 10/07/2025 9:15 AM EST Office Visit Internal Medicine - [address] [phone] Michelle Manriquez, DANIEL [address] [place] [address] 10/18/2025 9:15 AM EST Office Visit Bariatric Surgery - [place] [facility] [address] [place] [phone] Rosanne Hunter MD [address] [place] [phone] Scheduled Referrals Name Type Priority Associated Diagnoses Order Schedule Ambulatory referral to Physical Medicine Rehab Outpatient Referral Routine Chronic midline low back pain, unspecified whether sciatica present 1 Occurrences starting 08/22/2025 until 08/22/2026 documented as of this encounter Visit Diagnoses Diagnosis Chronic midline low back pain, unspecified whether sciatica present- Primary documented in this encounter Additional Health Concerns Infection Onset Date Last Indicated Resolved Time COVID-19 08/08/2025 08/08/2025 Assessment Noted Time PHQ-9 Depression Total Score: 9 07/15/20 25 10:40 AM EDT documented as of this encounter Care Teams Environmental Studies Faculty Member Relationship Specialty Start Date End Date Delia Ramírez MD [address] [place] [address] PCP - General Internal Medicine 05/05/25 documented as of this encounter
--- OUTSIDE RECORDS SUMMARY | 2025-09-01 11:04 | XMS_ITS | Clinical Summary ---
Author Organization Patient Business Ser vice [facility] Address [address] [place] [address] Care Team Providers Care Roll Tender Name Role Phone Delia Ramírez MD Primary Care Provider [phone] Allergies Active Allergy Reactions Criticality Noted Date Comments Cephalexin Diarrhea,Nausea And Vomiting 12/16/2012 Ciprofloxacin Diarrhea,Nausea And Vomiting 12/16/2012 Shellfish Containing Products 2019 Medications ondansetron (ZOFRAN) 4 mg tablet Take 1 tablet (4 mg total) by mouth every 8 (eight) hours if needed for nausea. 024 Active hydrocortisone 1 % topical cream Apply 0.5 FTU twice daily for up to two weeks. 024 Active acetaminophen (TYLENOL) 325 mg capsule Take by mouth. Active MULTIVITAMIN ORAL 1 tab daily Active phentermine 30 mg capsuleIndication s:Class 1 obesity due to excess calories with serious comorbidity and body mass index (BMI) of 31.0 to 31.9 in adult Take 1 capsule (30 mg total) by mouth 1 (one) time each day before breakfast. Max Daily Amount: 30 mg 30 each 2 Active atorvastatin (LIPITOR) 20 mg tabletIndications :Mixed hyperlipidemia Take 1 tablet (20 mg total) by mouth 1 (one) time each day. 90 each 1 025 2025 Active valsartan (DIOVAN) 160 mg tabletIndications :Primary hypertension Take 1 tablet (160 mg total) by mouth 2 (two) times a day. 180 tablet 1 025 2025 Active sertraline (ZOLOFT) 25 mg tabletIndications :Anxiety Take 2 tablets (50 mg total) by mouth 1 (one) time each day. Takes 25 mg daily x 1 week then increase to 50 mg daily afterwards 60 each 3 025 2024 Active albuterol HFA (PROAIR HFA ; PROVENTIL HFA ; VENTOLIN HFA) 90 mcg/actuation inhalerIndication s:Mild intermittent asthma without complication Inhale 2 Puffs into the lungs every 4 hours as needed for Cough or Wheezing. 6.7 g Active fluticasone propionate (FLONASE) 50 mcg/actuation nasal spray Administer 2 sprays into each nostril 1 (one) time each day. Shake gently. Before first use, prime pump. After use, clean tip and replace cap. 16 g 3 Active budesonide-formot Jennifer (SYMBICORT) 80-4.5 mcg/actuation inhaler Inhale 2 puffs by mouth 2 (two) times a day. Rinse mouth with water after use to reduce aftertaste and incidence of candidiasis. Do not swallow. 1 each 3 025 2025 Active omega-3 (FISH OIL) 300-1,000 mg capsule Take 1 capsule (1,000 mg total) by mouth 1 (one) time each day. Active cyclobenzaprine (FLEXERIL) 10 mg tablet Take 0.5 tablets (5 mg total) by mouth 2 (two) times a day if needed for muscle spasms. 60 tablet 1 025 2025 Active omeprazole (PriLOSEC) [address] capsuleIndication s:Gastroesophagea l reflux disease, unspecified whether esophagitis present Take 1 capsule (40 mg total) by mouth 2 (two) times a day. Do not crush or chew. 180 each 1 025 2025 Active hydroCHLOROthiazi de 12.5 mg tablet Take 1 tablet (12.5 mg total) by mouth 1 (one) time each day. 90 each 1 025 2025 Active omega-3 acid ethyl esters (LOVAZA) 1 gram capsule Take by mouth. 2024 Discontinued(D uplicate order) omeprazole (PriLOSEC) [address] capsuleIndication s:Gastroesophagea l reflux disease, unspecified whether esophagitis present Take 1 capsule (40 mg total) by mouth 1 (one) time each day. Do not crush or chew. 90 each 1 025 2024 Discontinued(R eorder) cyclobenzaprine (FLEXERIL) 10 mg tablet Take 1 tablet (10 mg total) by mouth 2 (two) times a day if needed for muscle spasms. 10 tablet 025 2024 Discontinued(R eorder) predniSONE (DELTASONE) 20 mg tablet Take 3 tabs (60mg) daily for 5 days, then take 2 tabs (40mg) daily for 2 days, then take 1 tab (20mg) daily for 2 days. 21 tablet 2024 hydroCHLOROthiazi de 12.5 mg tablet Take 1 tablet (12.5 mg total) by mouth 1 (one) time each day. 90 each 1 025 2024 Discontinued Active Problems Problem Noted Date Diagnosed Date Chronic gastritis 02/12/2023 Palpitations 02/12/2023 Syncope and collapse 02/12/2023 Anxiety and depression 07/03/2021 Acid reflux 05/01/2009 Allergic rhinitis 09/01/2006 Asthma 09/01/2006 HTN (hypertension) 09/01/2006 Overview (06/16/2024): previous pcp diaz shields. 08/25- [facility] Hyperlipidemia 09/01/2006 Overview (06/16/2024): was on lipitor 20mg and had elvated liver enxymes.so stopped Encounters Date Type Department Care Team Description 08/31/2025 9:00 AM EST Office Visit [facility] [address] [facility] [address] Michelle Manriquez, SHIFT MECHANIC Body aches (Primary Dx); Anxiety and depression; Insomnia, unspecified type; Mild intermittent asthma without complication; Gastroesophageal reflux disease, unspecified whether esophagitis present; Primary hypertension; Mixed hyperlipidemia; Palpitations; Grief 08/26/2025 10:00 AM EST Evaluation [address] [phone] Jose Jaime, PT Leg pain, bilateral 08/26/2025 Plan of Care Documentation [address] [phone] 08/22/2025 Telephone Internal Medicine - [address] [phone] Delia Ramírez MD 08/08/2025 2:15 PM EST Office Visit Walk-In Clinic - [address] [phone] Greg Garland NP COVID-19 (Primary Dx); Upper respiratory symptom 07/27/2025 1:33 PM EST - 07/27/2025 11:59 PM EST Hospital Encounter Xray - [address] [phone] Leg pain, bilateral Discharge Disposition: Home or Self Care 07/27/2025 1:00 PM EST Office Visit Internal [facility] - [address] [phone] Sukh Daniels NP Leg pain, bilateral (Primary Dx) 07/27/2025 [facility] [phone] Sukh Daniels NP 07/27/2025 [facility] [address] [phone] Sukh Daniels NP 07/25/2025 [facility] [phone] Delia Ramírez MD 07/15/2025 10:45 AM EDT Office Visit Internal Medicine [address] [phone] Michelle Manriquez NP Allergic rhinitis, unspecified seasonality, unspecified trigger (Primary Dx); Mild intermittent asthma without complication; Primary hypertension; Mixed hyperlipidemia; Anxiety; Family history of cancer; Screening for metabolic disorder; Encounter for screening mammogram for malignant neoplasm of breast; Grief; Sleep pattern disturbance; H/O: hysterectomy; Pain in both thighs 07/15/2025 10:25 AM EDT Lab Draw Station - [address] Pain in both lower extremities; Hypercholesterolemi a; Primary hypertension 07/05/2025 9:45 AM EDT Office Visit Walk-In Clinic - [address] [phone] Dianne Barajas NP Pain in both lower extremities (Primary Dx); Hypercholesterolemi a; Primary hypertension 06/07/2025 11:30 AM EDT Office Visit Internal Medicine [address] [phone] Alejandra Kaufman NP Grief (Primary Dx); Anxiety; Primary hypertension; Mixed hyperlipidemia; Gastroesophageal reflux disease, unspecified whether esophagitis present; Immunization due 06/07/2025 Telephone Internal Medicine [address] [phone] Alejandra Kaufman NP 06/07/2025 Telephone Internal Medicine [address] [phone] Delia Ramírez MD from Last 3 Months Immunizations Immunization Administration Dates Next Due Influenza Quadravalent, MDCK , 0.5ml, preservative free (Flucelvax) 6mo and older 07/03/2021,08/29/2020 Influenza trivalent, MDCK, 0 .5mL, preservative free (Flucelvax) 6mo and older 06/07/2025 Influenza trivalent, with pr eservative (Fluzone; Afluria) 6mo and older 05/15/2024,07/11/2022,07/30/2013,07/27 Influenza, Unspecified 07/05/2023 Moderna (age 6mo & older) Bi valent, COVID-19, 0.5 mL or 0.25 mL dosage 06/27/2022 Moderna SARS-CoV-2 COVID-19, mRNA, LNP-S, preservative free 07/05/2023 PPD Test 09/17/2017, 5,10/23/2007,09/01 Pneumococcal conjugate 20 va lent (Prevnar 20, PCV 20) 2mo and older 07/15/2025 Pneumococcal polysaccharide 23 valent (Pneumovax 23) 2yo and older 02/18/2014 Td Tetanus diptheria (Tdvax) 7yo and older 09/01/2006 Tdap Tetanus diptheria acell ular pertussis (Boostrix; Adacel) 7yo and older 01/23/2022,05/17/2011 Surgical History Surgery Date Site/Laterality Comments SECTION PROCEDURE: [facility] DELIVERY ONLY; COMMENT: History of x2. TUBAL LIGATION PROCEDURE: HISTORICAL TUBAL LIGATION HYSTERECTOMY 1998 PROCEDURE: HISTORICAL HYSTERECTOMY COLONOSCOPY 10/21/2011 PROCEDURE: HISTORICAL COLONOSCOPY; COMMENT: normal; repeat in 5 yrs BREAST SURGERY PROCEDURE: [facility] UNLISTED PROCEDURE BREAST; COMMENT: breast reduction CHOLECYSTECTOMY 11/03/2015 PROCEDURE: HISTORICAL CHOLECYSTECTOMY ABDOMINAL SURGERY 12/18/2019 PROCEDURE: HISTORICAL ABDOMINAL SURGERY; COMMENT: Lysis of adhesions and small bowel resection for SBO ABDOMINAL SURGERY 12/19/2016 PROCEDURE: HISTORICAL ABDOMINAL SURGERY; COMMENT: Panniculectomy with rectus plication ABDOMINAL SURGERY 02/2015 PROCEDURE: HISTORICAL ABDOMINAL SURGERY; COMMENT: Laparoscopic sleeve gastrectomy ABDOMINAL SURGERY 2017 PROCEDURE: HISTORICAL ABDOMINAL SURGERY; COMMENT: lysis of adhesions COLONOSCOPY 11/01/2020 PROCEDURE: HISTORICAL COLONOSCOPY; COMMENT: no polyps. COLONOSCOPY 2014 PROCEDURE: HISTORICAL COLONOSCOPY; COMMENT: [facility], GI bleeding, normal exam. Hemorrhoids only. LIPOMA RESECTION 04/2018 PROCEDURE: SKIN TISSUE EXCISION(LIPOMA); COMMENT: back Medical History Medical History Date Comments Unspecified essential hypertension DX:Unspecified essential hypertension Family History Medical History Relation Name Comments CABG Brother 1 Kirk Coronary artery disease Brother 1 Kirk Diabetes Brother 1 Kirk Hypertension Brother 1 Kirk Lymphoma Brother 2 Kidney failure Brother 3 kidney transp lant Coronary artery disease Father Heart attack Father Hypertension Father Lung cancer Father metastasized to colon and Prostate. Other: eye cancer Father's side second co usin Lung cancer Maternal Grandfather Colon cancer Maternal Grandmother Cancer of Small Bowel Mother Hypertension Mother Lung cancer Mother's side 1 aunt Colon cancer Mother's side 2 second cousi n Ovarian cancer Mother's side 3 Aunt, same aunt had uterine cancer as mentioned below Uterine cancer Mother's side 4 Aunt, same aunt had ovarian cancer as mentioned above Breast cancer Paternal Grandmother Hypertension Sister Relation Name Status Comments Brother 1 Kirk 3, Brother 2 (Age 60) Brother 3 Father (Age 65) lung ca Father's side Maternal Grandfather Maternal Grandmother (Age 45) Mother Alive Mother's side 1 Mother's side 2 Mother's side 3 Mother's side 4 Paternal Grandmother Sister Alive 3 Social History Tobacco Use Types Packs/Day Years [...] for your loved ones. For example, children's author or elderly care for an older adult? [...] on file Sexual Orientation Not on file Last Filed Vital Signs Vital Sign Reading Time Taken Comments Blood Pressure 144/82 08/31/2025 9:29 AM EST Pulse 82 08/31/2025 9:01 AM EST auto cuff Temperature 36.5 C (97.7 F) 08/31/2025 9:01 AM EST Respiratory Rate 12 07/05/2025 9:54 AM EDT Oxygen Saturation 99% 08/08/2025 2:18 PM EST Inhaled Oxygen Concentration - - Weight 68.6 kg (151 lb 3.2 oz) 08/31/2025 9:01 A M EST Height 160 cm (5' 3 ) 07/27/2025 1:02 PM EST Body Mass Index 26.78 07/27/2025 1:02 PM EST Plan of Treatment Upcoming Encounters Date Type Department Care Team (Late st Contact Info) Description 09/02/2025 2:30 PM EST Treatment [address] [phone] Dhiraj Hdz, APPRENTICE PATTERN MAKER 09/07/2025 9:00 AM EST Treatment [facility] [address] [phone] Clark Joshua, APPRENTICE PATTERN MAKER 09/14/2025 9:00 AM EST Treatment [facility] [address] [phone] Dhiraj Hdz, APPRENTICE PATTERN MAKER 09/16/2025 9:30 AM EST Treatment [facility] [address] [phone] Clark Joshua, APPRENTICE PATTERN MAKER 09/21/2025 9:00 AM EST Treatment [address] [phone] Clark Joshua, APPRENTICE PATTERN MAKER 09/23/2025 9:00 AM EST Treatment [address] [phone] Jose Jaime, PT 09/27/2025 10:00 AM EST Appointment [facility] [address] [place] [phone] 09/27/2025 10:45 AM EST [facility]ointment [facility] [address] [phone] 09/28/2025 9:00 AM EST Treatment [address] [phone] Clark Joshua, APPRENTICE PATTERN MAKER 09/30/2025 9:00 AM EST Treatment [address] [phone] Jose Jaime, PT 10/07/2025 9:15 AM EST Office Visit Internal Medicine - [facility] [address] [place] [phone] Michelle Manriquez, SHIFT MECHANIC [address] [place] [address] 10/18/2025 9:15 AM EST Office Visit Bariatric Surgery - [address] [place] [address] Rosanne Hunter MD [facility] [place] [address] Health Maintenance Due Date Last Done Comments COVID-19 Vaccine ( season) 2025 05/15/2024, 07/05/2023, 06/27/2022, Additional history exists Breast Cancer Screening 04/08/2026 04/08/20 24, 04/07/2024, 03/10/2021, Additional history exists Hypertension/CHF/CAD Annual BMP Blood Test 07/15/2026 07/15/2025, 02/22/2025, 07/16/2023 Social Influencers of Health Screening 07/15/2026 07/15/2025 Cholesterol Screening (Lipid Panel) 07/15/2030 07/15/2025, 02/22/2025, 07/16/2023 Colorectal Cancer Screening: Colonoscopy 11/01/2030 11/01/2020, 11/01/2020 DTaP,Tdap,and Td Vaccines (4 - Td or Tdap) 01/24/2032 01/23/2022, 05/17/2011, 09/01/2006 Hepatitis C Screening Completed 08/05/2013 Influenza Vaccine Completed 06/07/2025, , 07/05/2023, Additional history exists Depression Screening Completed 07/15/2025 Pneumococcal Vaccine: 50+ Years Completed 07/15/2025, 02/18/2014 HIB Vaccines Aged Out No longer eligi ble based on patient's age to complete this topic HIV Screening Discontinued HPV Vaccines Aged Out No longer eligi ble based on patient's age to complete this topic Hepatitis A Vaccines Aged Out No long er eligible based on patient's age to complete this topic Hepatitis B Vaccines Discontinued IPV Vaccines Aged Out No longer eligi ble based on patient's age to complete this topic MMR Vaccines Aged Out No longer eligi ble based on patient's age to complete this topic Meningococcal ACWY Vaccine Aged Out N o longer eligible based on patient's age to complete this topic Meningococcal B Vaccine Aged Out No l onger eligible based on patient's age to complete this topic RSV Immunization Adult Patients Discontinued RSV Immunization Patients Under 20 months Aged Out No longer eligible based on patient's age to complete this topic Varicella Vaccines Aged Out No longer eligible based on patient's age to complete this topic Zoster Vaccines Discontinued Procedures Procedure Name Priority Date/Time Associated Diagnosis Comments POC RAPID [id number], MOLECULAR Routine 08/08/2025 3:21 PM EST Upper respiratory symptom XR LUMBAR SPINE 4+ VIEWS Routine 07/27/2025 1:47 PM EST Leg pain, bilateral CBC WITH AUTO DIFFERENTIAL Routine 07/15/2025 10:31 AM EDT Pain in both lower extremities Hypercholesterolemia Primary hypertension CBC AND DIFFERENTIAL Routine 07/15/2025 10:31 AM EDT Pain in both lower extremities Hypercholesterolemia Primary hypertension COMPREHENSIVE METABOLIC PANEL Routine 07/15/2025 10:31 AM EDT Pain in both lower extremities Hypercholesterolemia Primary hypertension MAGNESIUM Routine 07/15/2025 10:31 AM EDT Pain in both lower extremities Hypercholesterolemia Primary hypertension LIPID PANEL WITH REFLEX TO DIRECT LDL Routine 07/15/2025 10:31 AM EDT Pain in both lower extremities Hypercholesterolemia Primary hypertension [facility] SCREENING DIGITAL Routine 04/08/2024 8:05 AM EDT Encounter for screening mammogram for malignant neoplasm of breast COLONOSCOPY Routine 11/01/2020 HEPATITIS C SCREENING Routine 08/05/2013 from Last 3 Months or Most Recently Relevant to Health Maintenance Results * (ABNORMAL) Poc Rapid [id number], MOLECULAR (08/08/2025 3:21 PM EST) COVID-19/SARS- COV-2 Rapid POC Positive(A ) Negative Swab Nasopharyngeal structure / Unknown 08/08/2025 3:21 PM EST Greg Garland NP POINT OF CARE TEST ENTER/EDIT ORDERABLES Final Result * XR Lumbar Spine 4+ Views (07/27/2025 1:47 PM EST) Anatomical Region Laterality Modality Spine, L-spine Radiographic Kimmie ging 07/27/2025 2:51 PM EST Impressions 07/27/2025 2:54 PM EST Spondylosis and scoliosis as described. -------- FINAL REPORT -------- Dictated By: Aida Cortez Dictated Date: 07/27/2025 14:51 ET Assigned Physician: Aida Cortez Reviewed and Electronically Signed By: Aida Cortez Signed Date: 07/27/2025 14:54 ET Workstation ID: [id number] Transcribed By: Self Edit Transcribed Date: 07/27/2025 14:51 ET Narrative 07/27/2025 2:54 PM EST LUMBOSACRAL SPINE, 5 VIEWS INCLUDING OBLIQUES HISTORY: Back pain. FINDINGS: There is rotatory dextroscoliosis of the lower thoracolumbar spine. There is slight anterolisthesis of L3 on L4 and L4 on L5. There is slight retrolisthesis of L5 on S1.. No fractures are seen. There is disc space narrowing and endplate spurring at L2-3, L3-4, L4-5, and L5- S1. There is facet arthropathy of the lower lumbar spine. There were surgical clips in the right upper quadrant and left abdomen. There are anastomotic sutures in the lower left abdomen. Procedure Note Aida Cortez MD - 07/27/2025 LUMBOSACRAL SPINE, 5 VIEWS INCLUDING OBLIQUES HISTORY: Back pain. FINDINGS: There is rotatory dextroscoliosis of the lower thoracolumbar spine. Thereis slight anterolisthesis of L3 on L4 and L4 on L5. There is slightretrolisthesis of L5 on S1.. No fractures are seen. There is disc space narrowing and endplate spurring at L2-3, L3-4, L4-5,and L5- S1. There is facet arthropathy of the lower lumbar spine. There were surgical clips in the right upper quadrant and left abdomen.There are anastomotic sutures in the lower left abdomen. IMPRESSION: Spondylosis and scoliosis as described. -------- FINAL REPORT -------- Dictated By: Aida Cortez Dictated Date: 07/27/2025 14:51 ET Assigned Physician: Aida Cortez Reviewed and Electronically Signed By: Aida Cortez Signed Date: 07/27/2025 14:54 ET Workstation ID: [id number] Transcribed By: Self Edit Transcribed Date: 07/27/2025 14:51 ET us Sukh Daneils SHIFT MECHANIC IMG XR PROCEDURES Final R esult * (ABNORMAL) Lipid panel with reflex to direct LDL (07/15/2025 10:31 AM EDT) Cholesterol 228(H) 0 - 200 mg/dL LAB CHEMISTRY METHOD 07/15/2025 3:30 PM EDT [facility] Triglycerides 65 0 - 150 mg/dL LAB CHEMISTRY METHOD 07/15/2025 3:30 PM [facility] HDL 89 >=40 mg/dL [facility] LDL Calculated 126(H) 0 - 100 mg/dL LAB CHEMISTRY METHOD 07/15/2025 3:30 PM [facility] Comment:Estimated LDL Calcul ated using equation: Total cholesterol - HDL cholesterol - (Triglycerides/5) VLDL Cholesterol Juan 13 mg/dL LAB CHEMISTRY METHOD 07/15/2025 3:30 PM T [facility] Non HDL Chol. (LDL+VLDL) 139 <145 mg/dL LAB CHEMISTRY METHOD 07/15/2025 3:30 PM [facility] Chol/HDL Ratio 2.6 0.0 - 4.4 LAB CHEMISTRY METHOD 07/15/2025 3:30 PM [facility] Blood Venous blood specimen / Unknown Venipuncture / Unknown 07/15/2025 10:31 AM EDT 07/15/2025 10:31 AM EDT us Dianne Barajas SHIFT MECHANIC LAB BLOOD ORDERABLES Final Res ult [facility] [address] [place] [address], [place] [phone] * (ABNORMAL) CBC auto differential (07/15/2025 10:31 AM EDT) WBC 6.9 4.8 - 10.8 K/mcL LAB HEMETOLOGY METHOD 07/15/2025 2:19 PM EDT [facility] RBC 4.20 3.80 - 4.80 M/mcL LAB HEMETOLOGY METHOD 07/15/2025 2:19 PM EDT [facility] Hemoglobin 11.1(L) 11.5 - 16.0 g/dL LAB HEMETOLOGY METHOD 07/15/2025 2:19 PM EDT [facility] Hematocrit 36.1 35.0 - 47.0 % LAB HEMETOLOGY METHOD 07/15/2025 2:19 PM EDT [facility] MCV 86.0 79.0 - 98.0 FL LAB HEMETOLOGY METHOD 07/15/2025 2:19 PM EDT [facility] MCH 26.4(L) 27.0 - 32.0 pcg LAB HEMETOLOGY METHOD 07/15/2025 2:19 PM EDT [facility] MCHC 30.7(L) 32.0 - 37.0 g/dL LAB HEMETOLOGY METHOD 07/15/2025 2:19 PM EDT [facility] RDW 13.4 11.0 - 15.0 % LAB HEMETOLOGY METHOD 07/15/2025 2:19 PM EDT [facility] Platelets 160 130 - 400 K/mcL LAB [facility]EMETOLOGY [facility] MPV 12.4(H) 7.0 - 11.0 FL LAB HEMETOLOGY METHOD 07/15/2025 2:19 PM [facility] NRBC 0.0 <1.0 % LAB HEMETOLOGY METHOD 07/15/2025 2:19 PM [facility] NRBC Absolute 0.00 <0.10 K/mcL LAB HEMETOLOGY METHOD 07/15/2025 2:19 PM [facility] Neutrophils Relative 68.3 % LAB HEMETOLOGY METHOD 07/15/2025 2:19 PM [facility] Lymphocytes Relative 21.7 % LAB HEMETOLOGY METHOD 07/15/2025 2:19 PM [facility] Monocytes Relative 7.7 % LAB HEMETOLOGY METHOD 07/15/2025 2:19 PM [facility] Eosinophils Relative 1.6 % LAB HEMETOLOGY METHOD 07/15/2025 2:19 PM [facility] Basophils Relative 0.4 % LAB HEMETOLOGY METHOD 07/15/2025 2:19 PM [facility] Immature Granulocytes Relative 0.3 % LAB HEMETOLOGY METHOD 07/15/2025 2:19 PM [facility] Neutrophils Absolute 4.72 1.50 - 7.00 K/mcL LAB HEMETOLOGY METHOD 07/15/2025 2:19 PM [facility] Lymphocytes Absolute 1.50 1.00 - 5.00 K/mcL LAB HEMETOLOGY METHOD 07/15/2025 2:19 PM [facility] Monocytes Absolute 0.53 0.20 - 1.00 K/mcL LAB HEMETOLOGY METHOD 07/15/2025 2:19 PM [facility] Eosinophils Absolute 0.11 0.00 - 0.50 K/mcL LAB HEMETOLOGY METHOD 07/15/2025 2:19 PM EDT [facility] Basophils Absolute 0.03 0.00 - 0.20 K/mcL LAB HEMETOLOGY METHOD 07/15/2025 2:19 PM EDT [facility] Immature Granulocytes Absolute 0.02 0.00 - 0.03 K/mcL LAB HEMETOLOGY METHOD 07/15/2025 2:19 PM EDT [facility] Blood Venous blood specimen / Unknown Venipuncture / Unknown 07/15/2025 10:31 AM EDT 07/15/2025 10:31 AM EDT Dianne Barajas NP LAB BLOOD ORDERABLES Final Res ult Performing Organization Address [facility]/ZIP Co de Phone Number [facility] [address] [place] [address], [place] [phone] * Magnesium (07/15/2025 10:31 AM EDT) Pathologist [facility] Magnesium 2.0 1.9 - 2.6 mg/dL LAB CHEMISTRY METHOD 07/15/2025 3:28 PM EDT [facility] Blood Venous blood specimen / Unknown Venipuncture / Unknown 07/15/2025 10:31 AM EDT 07/15/2025 10:31 AM EDT Dianne Barajas NP LAB BLOOD ORDERABLES Final Res ult [facility] [address] [place] [address], [place] [phone] * Comprehensive metabolic panel (07/15/2025 10:31 AM EDT) Sodium 137 133 - 145 mmol/L LAB CHEMISTRY METHOD 07/15/2025 3:29 PM EDT [facility] Potassium 3.7 3.5 - 5.5 mmol/L LAB CHEMISTRY METHOD 07/15/2025 3:29 PM [facility] Chloride 105 96 - 110 mmol/L LAB CHEMISTRY METHOD 07/15/2025 3:29 PM [facility] CO2 29 21 - 32 mmol/L LAB CHEMISTRY METHOD 07/15/2025 3:29 PM [facility] Anion Gap 3 3 - 11 LAB CHEMISTRY METHOD 07/15/2025 3:29 PM [facility] Glucose 84 70 - 100 mg/dL LAB CHEMISTRY METHOD 07/15/2025 3:29 PM [facility] BUN 14 5 - 25 mg/dL LAB CHEMISTRY METHOD 07/15/2025 3:29 PM [facility] Creatinine 0.65 0.50 - 1.10 mg/dL LAB CHEMISTRY METHOD 07/15/2025 3:29 PM [facility] eGFR 99 >=60 mL/min/1. 73m2 LAB CHEMISTRY METHOD 07/15/2025 3:29 PM [facility] Comment:Calculation based on the Chronic Kidney Disease Epidemiology Collaboration (CKD-EPI) equation refit without adjustment for race. BUN/Creatinine Ratio 21.5 LAB CHEMISTRY METHOD 07/15/2025 3:29 PM [facility] Calcium 9.5 8.5 - 10.5 mg/dL LAB CHEMISTRY METHOD 07/15/2025 3:29 PM [facility] AST (SGOT) 19 10 - 42 unit/L LAB CHEMISTRY METHOD 07/15/2025 3:29 PM [facility] ALT (SGPT) 24 10 - 60 unit/L LAB CHEMISTRY METHOD 07/15/2025 3:29 PM [facility] Alkaline Phosphatase 87 42 - 121 unit/L LAB CHEMISTRY METHOD 07/15/2025 3:29 PM [facility] Total Protein 6.8 6.0 - 8.0 g/dL LAB CHEMISTRY METHOD 07/15/2025 3:29 PM EDT [facility] Albumin 3.6 3.2 - 5.0 g/dL LAB CHEMISTRY METHOD 07/15/2025 3:29 PM EDT [facility] Total Bilirubin 0.6 0.0 - 1.4 mg/dL LAB CHEMISTRY METHOD 07/15/2025 3:29 PM EDT [facility] Blood Venous blood specimen / Unknown Venipuncture / Unknown 07/15/2025 10:31 AM EDT 07/15/2025 10:31 AM EDT us Dianne Barajas NP LAB BLOOD ORDERABLES Final Res ult [facility] [address] [place] [address], * LAWANDA SCREENING DIGITAL (04/08/2024 8:05 AM EDT) Anatomical Region Laterality Modality Mammography 04/07/2024 7:40 AM EDT Narrative 04/08/2024 8:05 AM EDT [facility] Diagnostic Imaging Department [address] [place] [address] Patient: VICTORINA YEN D.O.B./Age/Sex: 1960 - 63 - F Unit#: [id number] Location/Status: SPDIMAM/REG CLI Mnemonic/Ordering Site: DIGSC/SPMAM Ordering Physician: SONAM SKINNER MD [facility] Screening Digital - 04/07/24 - [id number] Report Status:Signed EXAM: [facility] Screening Digital EXAM DATE AND TIME: 04/07/2024 7:56 AM HISTORY: Annual screening COMPARISON: 03/10/2021, 10/15/2019 and 06/17/2018 TECHNIQUE: Bilateral digital breast tomosynthesis was performed in the CC and MLO projections. Computer aided detection with [employer] 7.2-H and [employer] 3D 3.1 was employed. TISSUE DENSITY: b. There are scattered areas of fibroglandular density. FINDINGS: No suspicious masses, grouped microcalcifications, or areas of architectural distortion are seen. The skin and vascularity are unremarkable. Stable postreduction changes. IMPRESSION: Stable mammographic appearance of the breasts. No evidence of malignancy is seen. A negative mammogram in the presence of a clinically suspicious palpable abnormality does not preclude the possibility of malignancy or alter the nilson cations for biopsy. BI-RADS: Category 2: Benign RECOMMENDATION(S): 1: Routine screening mammogram BILATERAL in 1 year. Dictating Physician: DIONE LYON MD Electronically Signed by: DIONE LYON MD Dic Date/Time: 04/08/24 0749 Sign date/Time: 04/08/24 0805 Procedure Note Dione Lyon MD - 06/30/2024 [facility] Diagnostic Imaging Department [address] [place], [place] [id number] Patient: VICTORINA YEN /Age/Sex: 1960 - 63 - F Unit#: [id number] Location/Status: SPDIMAM/REG CLI Mnemonic/Ordering Site: [facility] Ordering Physician: SONAM SKINNER MD [facility] Screening Digital - 04/07/24 - [id number] Report Status:Signed EXAM: [facility] Screening Digital EXAM DATE AND TIME: 04/07/2024 7:56 AM HISTORY: Annual screening COMPARISON: 03/10/2021, 10/15/2019 and 06/17/2018 TECHNIQUE: Bilateral digital breast tomosynthesis was performed in the CCand MLO projections. Computer aided detection with [employer] 3D 3.1 was employed. TISSUE DENSITY: b. There are scattered areas of fibroglandular density. FINDINGS: No suspicious masses, grouped microcalcifications, or areas ofarchitectural distortion are seen. The skin and vascularity are unremarkable. Stable postreduction changes. IMPRESSION: Stable mammographic appearance of the breasts. No evidence of malignancyis seen. A negative mammogram in the presence of a clinically suspicious palpable abnormality does not preclude the possibility of malignancy or alter theindi cations for biopsy. BI-RADS: Category 2: Benign RECOMMENDATION(S): 1: Routine screening mammogram BILATERAL in 1 year. Dictating Physician: DIONE LYON MD Electronically Signed by: DIONE LYON MD Dic Date/Time: 04/08/24 0749 Sign date/Time: 04/08/24 0805 Sonam Skinner MD IM BI PROCEDURES Final Result * Colonoscopy (11/01/2020) Colonoscopy Abstracted, Negative Anatomical Region Laterality Modality Other Historical Provider HEALTH MAINTENANCE Final Result * Hepatitis C Screening (08/05/2013) Pathologist [facility] Hepatitis C Screening Abstracted Historical Jocelyne DALTON HEALTH MAINTENANCE Final Result from Last 3 Months or Most Recently Relevant to Health Maintenance Additional Health Concerns Infection Onset Date Last Indicated COVID-19 08/08/2025 08/08/2025 Insurance [facility] Advance Directives Documents on File Type Date Recorded 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 Health Care Decision (hx) 12/06/2021 AD MEMBRENO DIRECTIVE Health Care Decision (hx) 12/06/2021 AD MEMBRENO DIRECTIVE Health Care Decision (hx) 12/06/2021 AD MEMBRENO DIRECTIVE Health Care Decision (hx) 12/06/2021 AD MEMBRENO DIRECTIVE Health Care Decision (hx) 12/06/2021 AD MEMBRENO DIRECTIVE Health Care Decision (hx) 12/06/2021 AD MEMBRENO DIRECTIVE Health Care Decision (hx) 12/06/2021 AD MEMBRENO DIRECTIVE Health Care Decision (hx) 12/06/2021 AD MEMBRENO DIRECTIVE Health Care Decision (hx) 12/06/2021 AD MEMBRENO DIRECTIVE Care Teams 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
--- OUTSIDE RECORDS SUMMARY | 2025-09-01 11:05 | XMS_ITS | Patient Health Record ---
Author Organization [facility] [address] Address [address] [place] [address] Care Team Providers [employer] Architect Name Role Phone [facility] Primary C are Provider Unavailable ELIZABETH BARAHONA Unavailable [phone] LYNETTE HOWARD Unavailable [phone] Allergies Allergen (clinical drug ingredient) Drug/Non Drug Allergy documented on EMR Reaction Allergy Type Onset Date Status ciprofloxacin Cipro Unknown Drug Allergy Act sarahi Keflex Unknown Drug Allergy Active Reason For Referral No Information Medications Medication SIG (Take, Route, Frequency, Duration) Notes Start Date End Date Status Semaglutide-Weight Management 0.5 MG/0.5ML Solution Auto-injector 0.5 mL Subcutaneous Active Lipitor 40 MG Tablet 1 tablet Orally Once a day Active Wegovy 0.25 MG/0.5ML Solution Auto-injector 0.5 mL Subcutaneous once a week; Duration: 30 days 07/22/2024 Active Omeprazole Magnesium 20 MG Tablet Delayed Release 1 tablet 30 minutes before morning meal Orally Once a day Active Diovan 160 MG Tablet 1 tablet Orally Once a day Active Social History Tobacco Use: Social History Observation Description Date Details (start date - stop date) Never Smoker NA - NA Social History Tobacco Use: Social Info Question Answer Notes Tobacco Use/Smoking Are you a nonsmoker Section Notes: 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 Problems Problem Type SNOMED Code ICD Code Onset Dates Problem Status W/U Status Risk Notes Problem Obesity (463461839) Obesity (BMI 30-39.9) (E66.9) Active confirmed Problem Dyslipidemia (453731879) Dyslipidemia (E78.5) Active confirmed Problem Overweight (383282112) Overweight (BMI 25.0-29.9) (E66.3) Active confirmed Problem Body mass index 30+ - obesity (247046378) Adult BMI 30.0-30.9 kg/sq m (Z68.30) Active confirmed Problem Gastroesophageal reflux disease (895058699) GERD without esophagitis (K21.9) Active confirmed Problem Benign essential hypertension (6679282) Benign essential hypertension (I10) Active confirmed Vital Signs Heart Rate 83 /min 09/30/2024 Oximetry 96 % 09/30/2024 Blood pressure diastolic 78 mm Hg 09/30/2024 Height 62 in 09/30/2024 Blood pressure systolic 124 mm Hg 09/30/2024 Weight 145.7 lbs 09/30/2024 BMI 26.65 kg/m2 09/30/2024 Encounters Encounter Location Date Provider Diagnosis [facility] [address] [place] [address] 09/11/2024 TALAL HOWARD [facility] [address] [place] [address] 09/17/2024 TALAL HOWARD [facility] [address] [place] [address] 09/23/2024 TALAL HOWARD [facility] [address] [place] [address] 09/30/2024 ELIZABETH UJN BMI 25.0-25.9,adult Z68.25 ; Overweight (BMI 25.0-29.9) E66.3 ; Dyslipidemia E78.5 ; Benign essential hypertension I10 and GERD without esophagitis K21.9 Assessments Encounter Date Diagnosis (ICD Code) Assessment Notes Treatment Notes Treatment Clinical Notes Section Notes 09/30/2024 BMI 25.0-25.9,adult (ICD-10 - Z68.25) Victorina is a pleasant 64-year-old woman who presents today for a weight management follow-up. 07/22/2024: Weight, 160, BMI 29-0.25 semaglutide subcutaneous injection to be given today, patient is compliant with this plan. Patient fully educated on the potential side effect profiles that are not limited to nausea, constipation, diarrhea and vomiting. Additionally he is educated on medication may cause increased anxiety, depression. We will submit for Wegovy in the meantime. #Elevated blood pressure: Patient states that her blood pressure is normally not this high, blood pressure in office today is 160/100, patient left the office before repeat was able to be completed. Patient is to call the office with her blood pressure when she is home 08/19/2024: Weight 155.2, BMI 28.38 patient would like to increase her dose to semaglutide 0.5 mg, injection given in office today. SECA demonstrates 4 pounds of muscle gained, 5 pounds of fat lost, adequate water intake and a significant increase in the patient's phase angle. Patient fully congratulated on her efforts and results that she is making great progress at this time. Patient states that she will be away on vacation the week of September 01 to . Patient will obtain her next injection, next week, and the week after she is to obtain her injection on September 01, for her final injection she has been approved to obtain this on September 11. Patient's insurance denied her Wegovy, her insurance appeal stated that she needed to be a part of a weight loss program for 3 months. Once the patient does hit her 3-month norma we will resubmit for Wegovy at that time. #Hyperlipidemia: Patient is taking Lipitor 40 mg tablets #Essential hypertension: Patient is taking D OV in 160 mg, blood pressure in office 128/70 #Esophageal reflux: Continue omeprazole 20 mg tablets daily 09/30/2024: BMI according to SECA is 25, weight 145.7, the patient has lost 10 pounds of weight, however half of this weight loss was muscle mass at this time. Patient in full agreement to discontinue the medication x 4 weeks, at 4-week follow-up may consider starting semaglutide 0.25 every other week, however with the amount of muscle loss the patient has lost I do not feel as though continuing 0.5 mg of semaglutide is appropriate at this time. Patient fully aware of the risks and benefits of creating her risk for osteopenia and osteoporosis is significant. #Hyperlipidemia: Continue Lipitor 40 mg tablets orally once daily #Hypertension: Continue Diovan 160 tablet, blood pressure 124/78 #Esophageal reflux: Continue omeprazole 20 mg tablets Patient is here for weight management followup. We focused on significance of healthy lifestyle changes. We talked about need to track steps, work on portion control, read food labels, get adequate sleep, give adequate rest of the body, meditate, frequent nutritious meals including vegetables and healthy choices of meat and elimination of refined carbohydrates. We also talked about mindfulness and mindful eating. Particular focus was on lifestyle changes Total time spent was 30 minutes with greater than 50% spent on counseling and coordinating care All questions have been answered to patient's satisfaction. Patient verbalized understanding of diagnosis and treatments explained. Advised to call sooner prior to next visit it any questions/concerns arise. Case discussed with Jodee DALTON who reviewed the assessment and plan. Chart, medications, labs, vital signs reviewed. Dictation was accomplished with the use of Motion[employer]SP voice recognition software, which is prone to medical misidentifications and grammatical errors. This are unintentional and the practitioner does try to identify and correct these, but some could still be present. Please do not hesitate to contact practitioner for clarification. 09/30/2024 Overweight (BMI 25.0-29.9) (ICD-10 - E66.3) Victorina is a pleasant 64-year-old woman who presents today for a weight management follow-up. 07/22/2024: Weight, 160, BMI 29-0.25 semaglutide subcutaneous injection to be given today, patient is compliant with this plan. Patient fully educated on the potential side effect profiles that are not limited to nausea, constipation, diarrhea and vomiting. Additionally he is educated on medication may cause increased anxiety, depression. We will submit for Wegovy in the meantime. #Elevated blood pressure: Patient states that her blood pressure is normally not this high, blood pressure in office today is 160/100, patient left the office before repeat was able to be completed. Patient is to call the office with her blood pressure when she is home 08/19/2024: Weight 155.2, BMI 28.38 patient would like to increase her dose to semaglutide 0.5 mg, injection given in office today. SECA demonstrates 4 pounds of muscle gained, 5 pounds of fat lost, adequate water intake and a significant increase in the patient's phase angle. Patient fully congratulated on her efforts and results that she is making great progress at this time. Patient states that she will be away on vacation the week of September 01 to . Patient will obtain her next injection, next week, and the week after she is to obtain her injection on September 01, for her final injection she has been approved to obtain this on September 11. Patient's insurance denied her Wegovy, her insurance appeal stated that she needed to be a part of a weight loss program for 3 months. Once the patient does hit her 3-month norma we will resubmit for Wegovy at that time. #Hyperlipidemia: Patient is taking Lipitor 40 mg tablets #Essential hypertension: Patient is taking D OV in 160 mg, blood pressure in office 128/70 #Esophageal reflux: Continue omeprazole 20 mg tablets daily 09/30/2024: BMI according to SECA is 25, weight 145.7, the patient has lost 10 pounds of weight, however half of this weight loss was muscle mass at this time. Patient in full agreement to discontinue the medication x 4 weeks, at 4-week follow-up may consider starting semaglutide 0.25 every other week, however with the amount of muscle loss the patient has lost I do not feel as though continuing 0.5 mg of semaglutide is appropriate at this time. Patient fully aware of the risks and benefits of creating her risk for osteopenia and osteoporosis is significant. #Hyperlipidemia: Continue Lipitor 40 mg tablets orally once daily #Hypertension: Continue Diovan 160 tablet, blood pressure 124/78 #Esophageal reflux: Continue omeprazole 20 mg tablets Patient is here for weight management followup. We focused on significance of healthy lifestyle changes. We talked about need to track steps, work on portion control, read food labels, get adequate sleep, give adequate rest of the body, meditate, frequent nutritious meals including vegetables and healthy choices of meat and elimination of refined carbohydrates. We also talked about mindfulness and mindful eating. Particular focus was on lifestyle changes Total time spent was 30 minutes with greater than 50% spent on counseling and coordinating care All questions have been answered to patient's satisfaction. Patient verbalized understanding of diagnosis and treatments explained. Advised to call sooner prior to next visit it any questions/concerns arise. Case discussed with Jodee DALTON who reviewed the assessment and plan. Chart, medications, labs, vital signs reviewed. Dictation was accomplished with the use of [employer] voice recognition software, which is prone to medical misidentifications and grammatical errors. This are unintentional and the practitioner does try to identify and correct these, but some could still be present. Please do not hesitate to contact practitioner for clarification. 09/30/2024 Dyslipidemia (ICD-10 - E78.5) Victorina is a pleasant 64-year-old woman who presents today for a weight management follow-up. 07/22/2024: Weight, 160, BMI 29-0.25 semaglutide subcutaneous injection to be given today, patient is compliant with this plan. Patient fully educated on the potential side effect profiles that are not limited to nausea, constipation, diarrhea and vomiting. Additionally he is educated on medication may cause increased anxiety, depression. We will submit for Wegovy in the meantime. #Elevated blood pressure: Patient states that her blood pressure is normally not this high, blood pressure in office today is 160/100, patient left the office before repeat was able to be completed. Patient is to call the office with her blood pressure when she is home 08/19/2024: Weight 155.2, BMI 28.38 patient would like to increase her dose to semaglutide 0.5 mg, injection given in office today. SECA demonstrates 4 pounds of muscle gained, 5 pounds of fat lost, adequate water intake and a significant increase in the patient's phase angle. Patient fully congratulated on her efforts and results that she is making great progress at this time. Patient states that she will be away on vacation the week of September 01 to . Patient will obtain her next injection, next week, and the week after she is to obtain her injection on September 01, for her final injection she has been approved to obtain this on September 11. Patient's insurance denied her Wegovy, her insurance appeal stated that she needed to be a part of a weight loss program for 3 months. Once the patient does hit her 3-month norma we will resubmit for Wegovy at that time. #Hyperlipidemia: Patient is taking Lipitor 40 mg tablets #Essential hypertension: Patient is taking D OV in 160 mg, blood pressure in office 128/70 #Esophageal reflux: Continue omeprazole 20 mg tablets daily 09/30/2024: BMI according to SECA is 25, weight 145.7, the patient has lost 10 pounds of weight, however half of this weight loss was muscle mass at this time. Patient in full agreement to discontinue the medication x 4 weeks, at 4-week follow-up may consider starting semaglutide 0.25 every other week, however with the amount of muscle loss the patient has lost I do not feel as though continuing 0.5 mg of semaglutide is appropriate at this time. Patient fully aware of the risks and benefits of creating her risk for osteopenia and osteoporosis is significant. #Hyperlipidemia: Continue Lipitor 40 mg tablets orally once daily #Hypertension: Continue Diovan 160 tablet, blood pressure 124/78 #Esophageal reflux: Continue omeprazole 20 mg tablets Patient is here for weight management followup. We focused on significance of healthy lifestyle changes. We talked about need to track steps, work on portion control, read food labels, get adequate sleep, give adequate rest of the body, meditate, frequent nutritious meals including vegetables and healthy choices of meat and elimination of refined carbohydrates. We also talked about mindfulness and mindful eating. Particular focus was on lifestyle changes Total time spent was 30 minutes with greater than 50% spent on counseling and coordinating care All questions have been answered to patient's satisfaction. Patient verbalized understanding of diagnosis and treatments explained. Advised to call sooner prior to next visit it any questions/concerns arise. Case discussed with Jodee DALTON who reviewed the assessment and plan. Chart, medications, labs, vital signs reviewed. Dictation was accomplished with the use of Motion[employer] voice recognition software, which is prone to medical misidentifications and grammatical errors. This are unintentional and the practitioner does try to identify and correct these, but some could still be present. Please do not hesitate to contact practitioner for clarification. 09/30/2024 Benign essential hypertension (ICD-10 - I10) Victorina is a pleasant 64-year-old woman who presents today for a weight management follow-up. 07/22/2024: Weight, 160, BMI 29-0.25 semaglutide subcutaneous injection to be given today, patient is compliant with this plan. Patient fully educated on the potential side effect profiles that are not limited to nausea, constipation, diarrhea and vomiting. Additionally he is educated on medication may cause increased anxiety, depression. We will submit for Wegovy in the meantime. #Elevated blood pressure: Patient states that her blood pressure is normally not this high, blood pressure in office today is 160/100, patient left the office before repeat was able to be completed. Patient is to call the office with her blood pressure when she is home 08/19/2024: Weight 155.2, BMI 28.38 patient would like to increase her dose to semaglutide 0.5 mg, injection given in office today. SECA demonstrates 4 pounds of muscle gained, 5 pounds of fat lost, adequate water intake and a significant increase in the patient's phase angle. Patient fully congratulated on her efforts and results that she is making great progress at this time. Patient states that she will be away on vacation the week of September 01 to . Patient will obtain her next injection, next week, and the week after she is to obtain her injection on September 01, for her final injection she has been approved to obtain this on September 11. Patient's insurance denied her Wegovy, her insurance appeal stated that she needed to be a part of a weight loss program for 3 months. Once the patient does hit her 3-month norma we will resubmit for Wegovy at that time. #Hyperlipidemia: Patient is taking Lipitor 40 mg tablets #Essential hypertension: Patient is taking D OV in 160 mg, blood pressure in office 128/70 #Esophageal reflux: Continue omeprazole 20 mg tablets daily 09/30/2024: BMI according to SECA is 25, weight 145.7, the patient has lost 10 pounds of weight, however half of this weight loss was muscle mass at this time. Patient in full agreement to discontinue the medication x 4 weeks, at 4-week follow-up may consider starting semaglutide 0.25 every other week, however with the amount of muscle loss the patient has lost I do not feel as though continuing 0.5 mg of semaglutide is appropriate at this time. Patient fully aware of the risks and benefits of creating her risk for osteopenia and osteoporosis is significant. #Hyperlipidemia: Continue Lipitor 40 mg tablets orally once daily #Hypertension: Continue Diovan 160 tablet, blood pressure 124/78 #Esophageal reflux: Continue omeprazole 20 mg tablets Patient is here for weight management followup. We focused on significance of healthy lifestyle changes. We talked about need to track steps, work on portion control, read food labels, get adequate sleep, give adequate rest of the body, meditate, frequent nutritious meals including vegetables and healthy choices of meat and elimination of refined carbohydrates. We also talked about mindfulness and mindful eating. Particular focus was on lifestyle changes Total time spent was 30 minutes with greater than 50% spent on counseling and coordinating care All questions have been answered to patient's satisfaction. Patient verbalized understanding of diagnosis and treatments explained. Advised to call sooner prior to next visit it any questions/concerns arise. Case discussed with Jodee DALTON who reviewed the assessment and plan. Chart, medications, labs, vital signs reviewed. Dictation was accomplished with the use of [employer] voice recognition software, which is prone to medical misidentifications and grammatical errors. This are unintentional and the practitioner does try to identify and correct these, but some could still be present. Please do not hesitate to contact practitioner for clarification. 09/30/2024 GERD without esophagitis (ICD-10 - K21.9) Victorina is a pleasant 64-year-old woman who presents today for a weight management follow-up. 07/22/2024: Weight, 160, BMI 29-0.25 semaglutide subcutaneous injection to be given today, patient is compliant with this plan. Patient fully educated on the potential side effect profiles that are not limited to nausea, constipation, diarrhea and vomiting. Additionally he is educated on medication may cause increased anxiety, depression. We will submit for Wegovy in the meantime. #Elevated blood pressure: Patient states that her blood pressure is normally not this high, blood pressure in office today is 160/100, patient left the office before repeat was able to be completed. Patient is to call the office with her blood pressure when she is home 08/19/2024: Weight 155.2, BMI 28.38 patient would like to increase her dose to semaglutide 0.5 mg, injection given in office today. SECA demonstrates 4 pounds of muscle gained, 5 pounds of fat lost, adequate water intake and a significant increase in the patient's phase angle. Patient fully congratulated on her efforts and results that she is making great progress at this time. Patient states that she will be away on vacation the week of September 01 to . Patient will obtain her next injection, next week, and the week after she is to obtain her injection on September 01, for her final injection she has been approved to obtain this on September 11. Patient's insurance denied her Wegovy, her insurance appeal stated that she needed to be a part of a weight loss program for 3 months. Once the patient does hit her 3-month norma we will resubmit for Wegovy at that time. #Hyperlipidemia: Patient is taking Lipitor 40 mg tablets #Essential hypertension: Patient is taking D OV in 160 mg, blood pressure in office 128/70 #Esophageal reflux: Continue omeprazole 20 mg tablets daily 09/30/2024: BMI according to SECA is 25, weight 145.7, the patient has lost 10 pounds of weight, however half of this weight loss was muscle mass at this time. Patient in full agreement to discontinue the medication x 4 weeks, at 4-week follow-up may consider starting semaglutide 0.25 every other week, however with the amount of muscle loss the patient has lost I do not feel as though continuing 0.5 mg of semaglutide is appropriate at this time. Patient fully aware of the risks and benefits of creating her risk for osteopenia and osteoporosis is significant. #Hyperlipidemia: Continue Lipitor 40 mg tablets orally once daily #Hypertension: Continue Diovan 160 tablet, blood pressure 124/78 #Esophageal reflux: Continue omeprazole 20 mg tablets Patient is here for weight management followup. We focused on significance of healthy lifestyle changes. We talked about need to track steps, work on portion control, read food labels, get adequate sleep, give adequate rest of the body, meditate, frequent nutritious meals including vegetables and healthy choices of meat and elimination of refined carbohydrates. We also talked about mindfulness and mindful eating. Particular focus was on lifestyle changes Total time spent was 30 minutes with greater than 50% spent on counseling and coordinating care All questions have been answered to patient's satisfaction. Patient verbalized understanding of diagnosis and treatments explained. Advised to call sooner prior to next visit it any questions/concerns arise. Case discussed with Jodee DALTON who reviewed the assessment and plan. Chart, medications, labs, vital signs reviewed. Dictation was accomplished with the use of [employer] voice recognition software, which is prone to medical misidentifications and grammatical errors. This are unintentional and the practitioner does try to identify and correct these, but some could still be present. Please do not hesitate to contact practitioner for clarification. Plan Of Treatment No Information Insurance Providers Payer Name Payer Address Payer Phone Subscriber Number Group Number Insured Name Patient Relationship to Insured Coverage Start Date Coverage End Date [facility] [address] [place] [address] [id number] Victorina Torres Self - patient is the insured 3 Medications Administered Medication Instructions Date of Administration Dosage Notes Semaglutide 07/22/2024 0.25 Semaglutide 07/29/2024 0.25 mg Semaglutide 08/05/2024 0.25 mg Semaglutide 08/11/2024 0.25 mg Semaglutide 08/19/2024 0.5 mg Semaglutide 08/25/2024 0.5 mg Semaglutide 08/31/2024 0.5 mg Semaglutide 09/11/2024 0.5 mg Semaglutide 09/17/2024 0.5 mg Semaglutide 09/23/2024 0.5 mg Medical (General) History Medical History History ICD Code hyperlipidemia hypertension esophageal reflux Poor circulation in colon Surgical History Surgery Date(Month/Year) gallbladder c section partial hysterectomy bowel resection
== END 2025-09-01 09:52 | disposition home or self-care (01) ==
LOC: HO.HPHYS 09:34
PROVIDERS: PCP Internal Medicine; Visit Provider Physician Assistant
DX: M54.16 Radiculopathy, lumbar region (principal); M47.816 Spondylosis without myelopathy or radiculopathy, lumbar region
CPT/HCPCS: 99204